=== PATIENT | male | born 1955 | race Caucasian/White ===

== ENCOUNTER 2019-04-25 08:27 | Outpatient (CLI) | payer OTHER ==
--- NOTE | 2019-04-26 08:40 | Ultrasound Report ---
Reason: LT POSTAURICULAR MASS Procedure Date: 04/25/2019 Accession Number: [id number] / [id number] Procedure: US - Head or Neck Soft Tissue CPT Code: Final Report FULL RESULT: EXAM: NECK ULTRASOUND LIMITED EXAM DATE: 04/25/2019 09:12 AM. CLINICAL HISTORY: LT POSTAURICULAR MASS. COMPARISON: None. TECHNIQUE: Real-time sonographic imaging was performed by the real time trader utilizing color-flow. Multiple sales representative aircraft static images were saved for review. FINDINGS: Focused ultrasound of the left neck region posterior to the mandible is performed in the area indicated as palpable which demonstrates a relatively round hypoechoic structure with increased internal signal and increased peripheral vascularity as well as increased through-transmission with a well-defined subjectively thick-appearing rim. IMPRESSION: Findings are sonographically nonspecific. Differential diagnosis includes branchial cleft cyst, sebaceous cyst of the duct leading to the skin surface not demonstrated, less likely lymphadenopathy with loss of architecture, although no other lymphadenopathy is visualized. RADIA
== END 2019-04-25 08:28 | disposition home or self-care (01) ==
LOC: DI 08:27
PROVIDERS: ATTEND Nurse Practitioner Family
DX: R22.1 Localized swelling, mass and lump, neck (principal)
CPT/HCPCS: 76536

== ENCOUNTER 2023-04-30 17:45 | Emergency (ER) | payer MEDICARE, OTHER ==
--- NOTE | 2023-04-30 18:19 | ED Physician Documentation ---
PD HPI SYNCOPE - Stated complaint Stated Complaint: SYNCOPE - Chief complaint Chief Complaint: Neuro - History obtained from History obtained from: Patient - Additional information Additional information: 67-year-old gentleman with type 2 diabetes and hypertension presents for the evaluation of syncope. He had 3 episodes of syncope today. He woke up this morning feeling some stomach upset and mild pain kind got worse and got better again. He had 3 episodes of syncope each preceded by a hot flash. No chest pain or trouble breathing. We noted on the monitor that he is modestly bradycardic. He says his usual pulse is in the 70s. He is not on any beta- blockers or calcium channel blockers. PD PAST MEDICAL HISTORY - Past Medical History Past Medical History: Yes Cardiovascular: Hypertension Endocrine/Autoimmune: Type 2 diabetes - Past Surgical History Past Surgical History: Yes Derm: Skin cancer surgery - Present Medications Home Medications: Ambulatory Orders Medication Instructions Recorded Confirmed Dulaglutide [Trulicity] 0.75 mg SUBQ PRN PRN 04/30/23 04/30/23 Lisinopril [Zestril] 30 mg PO DAILY 04/30/23 04/30/23 allopurinoL [Allopurinol] 200 mg PO DAILY 04/30/23 04/30/23 metFORMIN [Glucophage] 1,000 mg PO BIDWM 04/30/23 04/30/23 - Allergies Allergies/Adverse Reactions: Allergies Allergy/AdvReac Type Severity Reaction Status Date / Time No Known Drug Allergies Allergy Verified 04/30/23 17:55 - Social History Does the pt smoke?: No Smoking Status: Never smoker PD ED PE NORMAL - Vitals Vital signs reviewed: Yes - General General: Alert and oriented X 3, No acute distress - Cardiac Cardiac: Other (Bradycardic but regular without murmur) - Respiratory Respiratory: No respiratory distress, Clear bilaterally - Abdomen Abdomen: Normal bowel sounds, Soft, Non tender - Extremities Extremities: No edema, No calf tenderness / cord - Neuro Neuro: Alert and oriented X 3, Normal speech Results - Vitals Vitals: Vital Signs - 24 hr 04/30/23 17:50 Temperature 36.1 C L Heart Rate 47 L Respiratory 16 Rate Blood Pressure 155/70 H O2 Saturation 99 Oxygen O2 Source Room air - EKG (time done) 1803 EKG releavant findings:: EKG personally interpreted by author of this note. Relevant findings are: Rate: Rate (enter#) (47) Rhythm: Sinus bradycardia [place]: Normal Intervals: Prolonged [place], RBBB QRS: Normal Ischemia: Normal ST segments - Labs Labs: Laboratory Tests 04/30/23 04/30/23 04/30/23 18:17 18:17 18:17 WBC 9.5 RBC 5.10 Hgb 15.7 Hct 47.5 MCV 93.1 MCH 30.8 MCHC 33.1 RDW 13.8 Plt Count 221 MPV 10.1 Neut # (Auto) 6.6 Lymph # (Auto) 2.2 [place] # (Auto) 0.7 Eos # (Auto) 0.1 Baso # (Auto) 0.1 Absolute Nucleated RBC 0.00 Nucleated RBC % 0.0 Sodium 138 Potassium 4.1 Chloride 101 Carbon Dioxide 27 Anion Gap 10.0 BUN 38 H Creatinine 1.4 H Estimated GFR (MDRD) 50 L Glucose 259 H Calcium 10.2 Magnesium 1.5 L Total Bilirubin 0.3 AST 19 ALT 22 Alkaline Phosphatase 94 Troponin I High Sens 8.8 Total Protein 7.7 Albumin 4.7 Globulin 3.0 Albumin/Globulin Ratio 1.6 SARS-CoV-2 (PCR) 04/30/23 19:55 WBC RBC Hgb Hct MCV MCH MCHC RDW Plt Count MPV Neut # (Auto) Lymph # (Auto) [place] # (Auto) Eos # (Auto) Baso # (Auto) Absolute Nucleated RBC Nucleated RBC % Sodium Potassium Chloride Carbon Dioxide Anion Gap BUN Creatinine Estimated GFR (MDRD) Glucose Calcium Magnesium Total Bilirubin AST ALT Alkaline Phosphatase Troponin I High Sens Total Protein Albumin Globulin Albumin/Globulin Ratio SARS-CoV-2 (PCR) NOT DETECTED PD Medical Decision Making - ED course ED course: He has had 3 episodes of syncope today. No chest pain or trouble breathing. He is fairly bradycardic on the monitor here, usually in the 40s, at 1 point I see him dipped down to 39. That was asymptomatic. Will obtain lab testing, keep an eye on him for a while but anticipate he will probably need to be transferred for observation as we do not have echocardiogram available over the weekend. Lab work demonstrates an unremarkable CBC, CMP notable for renal insufficiency, this was discussed with him and he says he does not have at least known pre- existing renal insufficiency. He is hypomagnesemic and hyperglycemic. His troponin is negative. He scores 5 points on the [place] syncope rule, this is high risk. He scores "not low risk" on the [place] syncope rule and "high risk" on the [place] rule. Spoke with Dr Dakota Santiago, cardiology at [facility] who agrees with xfer to hospitalist service. He will consult if needed, but will need the hospitalist to consult. Care to Dr Guevara At change of shift pending callback from the hospitalist. Departure - Departure Disposition: 02 Transfer Acute Care Hosp Clinical Impression: Syncope, Abnormal EKG Condition: Stable Forms: PCP List
[2023-04-30 18:23] LABS: BASOPHILS # (AUTO) 0.1 10^3/uL (0.0-0.1); BASOPHILS % (AUTO) 0.5 %; EOSINOPHILS # (AUTO) 0.1 10^3/uL (0.0-0.7); EOSINOPHILS % (AUTO) 0.6 %; HCT - HEMATOCRIT 47.5 % (42.0-52.0); HGB - HEMOGLOBIN 15.7 g/dL (14.0-18.0); LYMPHOCYTES # (AUTO) 2.2 10^3/uL (1.5-3.5); LYMPHOCYTES % (AUTO) 22.8 %; MEAN CORPUSCULAR HEMOGLOBIN 30.8 pg (27.0-31.0); MEAN CORPUSCULAR HGB CONC 33.1 g/dL (32.0-36.0); MEAN CORPUSCULAR VOLUME 93.1 fL (80.0-94.0); MEAN PLATELET VOLUME 10.1 fL (7.4-11.4); MONOCYTES # (AUTO) 0.7 10^3/uL (0.0-1.0); MONOCYTES % (AUTO) 6.8 %; NEUTROPHILS # (AUTO) 6.6 10^3/uL (1.5-6.6); NEUTROPHILS % (AUTO) 68.8 %; PLT - PLATELET COUNT 221 10^3/uL (130-450); RED CELL DISTRIBUTION WIDTH 13.8 % (12.0-15.0); WHITE BLOOD COUNT 9.5 x10^3/uL (4.8-10.8)
[2023-04-30 18:40] LABS: ALBUMIN 4.7 g/dL (3.2-5.5); ALBUMIN/GLOBULIN RATIO 1.6 (1.0-2.2); BILIRUBIN,TOTAL 0.3 mg/dL (0.2-1.0); CALCIUM 10.2 mg/dL (8.5-10.3); CREATININE 1.4 mg/dL (0.6-1.3); MAGNESIUM 1.5 mg/dL (1.7-2.3); POTASSIUM 4.1 mmol/L (3.5-4.5); TOTAL PROTEIN 7.7 g/dL (6.4-8.9)
[2023-04-30] MEDS: MAGNESIUM SULFATE 2 GRAM 2 GM/50 ML BAG IV ONE (18:54)
[2023-04-30] MEDS: SODIUM CHLORIDE 0.9% 500 ML IV STA ×2 (22:25→22:31)
--- NOTE | 2023-04-30 22:34 | ED Physician Documentation ---
ED Addendum - Addendum Addendum: 04/30/23 22:31 At shift change I am asked to take care of Blayne Bragg who is anticipating transfer to [facility] for admission for observation and echocardiogram. The central lab technician Dr. Pruitt has recommended admission to the hospitalist service. I spoke to Dr. Victorino Benoit who recommended I give the patient a 500 mL bolus of saline and indicated to me that the wait for a bed would be sometime tomorrow. He has been accepted. I went to the patient's bedside and he appears well basically having no symptoms. His BUN and creatinine were elevated at 38 and 1.4 and we have nothing to compare to. I suspected dehydration and evaluated his inferior vena cava with POCUS and found that he had a 2 L deficit. He has a vessel measuring 9.3 mm. He is administered a liter of saline. He has been given IV magnesium and I am no longer seeing the ectopy that was seen earlier. Following hydration is heart rate increased to the 80's. At shift change care is turned over to the day doc anticipating transfer to [facility] in [place] today. 05/01/23 05:53 05/01/23 06:53
[2023-05-01 08:04] LABS: CALCIUM 9.5 mg/dL (8.5-10.3); MAGNESIUM 1.7 mg/dL (1.7-2.3); POTASSIUM 3.7 mmol/L (3.5-4.5)
[2023-05-01] MEDS: allopurinoL 100 MG TABLET PO SCH (08:38)
[2023-05-01] MEDS: MAGNESIUM OXIDE 400 MG TABLET PO SCH (08:38)
[2023-05-01] MEDS: metFORMIN 500 MG TABLET PO SCH (08:39)
[2023-05-01] MEDS: lisinopriL 20 MG TABLET PO SCH (08:39)
--- NOTE | 2023-05-01 12:48 | ED Physician Documentation ---
ED Addendum - Addendum Addendum: 05/01/23 12:46 The patient was resting comfortably this morning. He had a regular breakfast which I thought would be reasonable as would be unlikely to have any acute interventions over the next few hours. We are still awaiting prod [place] to call with bed availability. His heart rate had remained in the normal range between 60 and 80 from much of the night and into this morning. It seemed to have improved after some IV fluids earlier. Subsequently the patient did have heart rate go down to the 40s again. We will give some IV fluids again but also a magnesium and potassium supplementation. Even though they are in the normal range, it is on the lower end of normal and along with the fluids earlier he had also been given a magnesium supplement. The extra electrolytes may be helpful in improving the heart rate. It does seem to be a sinus bradycardia without any block. He is awake and alert with that. He is normotensive.
[2023-05-01] MEDS: SODIUM CHLORIDE 0.9% 500 ML IV STA (12:49)
[2023-05-01] MEDS: POTASSIUM CHLOR 10 MEQ/100 ML 10 MEQ/100 ML BAG IV STA (13:07)
[2023-05-01] MEDS: MAGNESIUM SULFATE 2 GRAM 2 GM/50 ML BAG IV ONE (13:08)
[2023-05-01 17:16] VITALS: BP 176/64; O2SAT 95
== END 2023-05-01 17:10 | disposition short-term general hospital (02) ==
LOC: ED 17:45
DX: R55 Syncope and collapse (principal); R94.31 Abnormal electrocardiogram [ECG] [EKG]; I10 Essential (primary) hypertension; E11.9 Type 2 diabetes mellitus without complications; Z79.84 Long term (current) use of oral hypoglycemic drugs; Z11.52 Encounter for screening for COVID-19; R00.1 Bradycardia, unspecified
CPT/HCPCS: 36415; 80048; 80053; 83735; 84484; 85025; 87635; 93005; 96365; 96366; 96367; 96368; 99285; A9270

== ENCOUNTER 2023-06-29 19:00 | Outpatient (CLI) | payer MEDICARE, OTHER ==
--- NOTE | 2023-06-30 15:45 | Ultrasound Report ---
PROCEDURE: Soft Tissue Head or Neck INDICATIONS: MASS TECHNIQUE: Real-time scanning was performed of the left periarticular region, with image documentation. COMPARISON: Ultrasound neck 04/25/2019 FINDINGS: Stable appearance of mass in the left periarticular region demonstrate heterogeneous echogenicity. Me asures 1.5 x 1.4 x 1.3 cm. It measures 1.4 x 1.3 x 1.5 cm compared to 0.9 x 0.9 x 0.7 cm. IMPRESSION: Mildly enlarged focus of complex echogenicity in the left posterior regular region. Differential diag nosis includes brachial cleft cyst or potentially sebaceous cyst. Reviewed by: Camille Stafford MD on 06/30/2023 3:44 PM PDT Approved by: Camille Stafford MD on 06/30/2023 3:44 PM PDT Station ID: [id number]
== END 2023-06-29 19:01 | disposition home or self-care (01) ==
LOC: DI 19:00
PROVIDERS: ATTEND Internal Medicine
DX: R22.9 Localized swelling, mass and lump, unspecified (principal)